=== PATIENT | female | born 1980 | race Caucasian/White ===

== ENCOUNTER 2016-07-12 06:30 | Inpatient (IN) | payer OTHER ==
--- NOTE | 2016-07-05 21:25 | GHP ---
[ f rep st] PREOP HISTORY AND PHYSICAL Amended report DATE OF ADMISSION: 07/12/2016 DATE OF SURGERY: Patient is slated for surgery on 07/12/2015 on the Obstetric service. PREOPERATIVE HISTORY: The patient is a 36-year-old, G3, P1, A1, at 39 weeks 5 days, with an estimated due date of 07/14/2016, who presents for scheduled repeat section. The patient had desired a trial of labor. However, with no spontaneous onset of labor, the patient desires delivery by 40 weeks by section. Risks and benefits have been discussed about the surgery, and the consent form is signed. The patient is offered a tubal ligation for sterilization; however, the patient declines. She is also advised of the potential benefits of salpingectomy and declines. CARE: The patient is followed with [facility] since 9 weeks ' gestation. The patient had a prior history of a section due to a breech presentation, and had considered a trial of labor. However, there has been no onset of spontaneous contractions up to this point, and patient desires scheduling a . testing has been normal. Ultrasound at 20 weeks revealed a low-lying anterior placenta positioned over the prior C- section scar. This was rechecked at 29 weeks' gestation, and the cervix had moved up; however, the placental tip was still over the prior scar. There was no evidence of myometrial invasion. This was rechecked again at 36 weeks, and the placenta was cleared of the lower uterine segment. The baby was measuring in size less than dates, and a recheck of growth at 36 weeks also revealed estimated weight of the 34th percentile at 5 pounds 14 ounces. Fluid was felt to be low at 8 cm, and the patient was advised to increase hydration, and this was rechecked a week later, and had increased to 13.6 cm. The patient has since been pushing fluids well. LABS: Maternal blood type of O positive, with negative antibody screen. RPR nonreactive. Rubella immune. Hepatitis B surface antigen negative. HIV negative. Cystic fibrosis, SMA, fragile X, all negative. Urinalysis and culture negative. Pap smear normal. Gonorrhea and chlamydia negative. Verified testing was normal. MSAFP negative. Hematocrit at the beginning of was 36%, which fell to 33%, and a repeat check was 32%. The patient has been on iron. One-hour Glucola was normal. GBS culture was positive. PAST MEDICAL HISTORY: Abnormal Pap smears at age 18, and cryotherapy performed , and Pap smears normal since then. PAST SURGICAL HISTORY: section, and D and C's x2. PAST OBSTETRIC HISTORY: In April 2012, a viable female at 8 pounds 14 ounces , delivered via section due to breech presentation. This was in [place]. In October 2014, a molar was diagnosed, and a D and C performed. After the D and C was performed and molar tissue obtained, the hCG levels were followed. There was a slow decline that plateaued after week 4. The patient did consult with Dr. Love of Gynecology/Oncology for continued surveillance. The hCGs thereafter decreased to 0. ALLERGIES: Patient has no known drug allergies. CURRENT MEDICATIONS: Only vitamins, with DHA, iron. SOCIAL HISTORY: The patient is , lives with her and their daughter. 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 The patient is a nonsmoker. No alcohol or drug use. PHYSICAL EXAM: GENERAL APPEARANCE: At time of preop, the patient is a well- developed, well-nourished, white female in no physical distress. VITAL SIGNS: The patient is clinically afebrile. Blood pressure 96/58. Urine negative for protein and glucose. Weight 149 pounds. HEENT: Shows no thyromegaly. LUNGS: Clear to auscultation bilaterally. CARDIOVASCULAR: Regular rate and rhythm. ABDOMEN: heart tones are in the 150s. Uterus is gravid, with a fundal height of 33 cm. PELVIC: Exam is deferred. EXTREMITIES: Nontender. ASSESSMENT: Intrauterine at 39 weeks 5 days who will present on for repeat section if she has not had any spontaneous onset of labor. The patient declines tubal ligation. Positive GBS history. History of cryotherapy, with a normal Pap smear. History of a molar in October 2014 , with recommendations to send the placenta to pathology to rule out any molar recurrence in the placental tissue. The patient will also have a followup hCG level at 6 weeks . PLAN: The patient will have a repeat on 07/12/2016. Normal preoperative antibiotics and SCDs. /[id number]/MODL Add acc#, 07/12/16, mike SOLOMON
[2016-07-12] MEDS ORDERED: ceFAZolin 2 GM/DEXTROSE 100 ML IV ONE ×2 (07:00→07:28)
[2016-07-12] MEDS ORDERED: CITRIC ACID/SODIUM CITRATE 30 ML UDCUP PO ONE (07:28)
[2016-07-12] MEDS ORDERED: LR 500 ML IV ONE (07:28)
[2016-07-12] MEDS ORDERED: LR 1,000 ML IV SCH (07:30)
[2016-07-12 07:38] LABS: % IMMATURE GRANULYOCYTES 0.5 % (0.0-1.1); ABSOLUTE IMMATURE GRANULOCYTES 0.04 10^3/uL (0.00-0.10); ADD DIFF? NO; ADD MORPH? NO; ADD SCAN? NO; ATYPICAL LYMPHOCYTE FLAG 30 (0-99); FRAGMENT RBC FLAG 0 (0-99); HEMATOCRIT 32.3 % (38.0-47.0); HEMOGLOBIN 11.2 g/dL (12.6-16.3); LEFT SHIFT FLG 0 (0-99); LIPEMIA HEMOLYSIS FLAG 90 (0-99); MEAN CELL HEMOGLOBIN 30.8 pg (27.9-34.1); MEAN CELL HEMOGLOBIN CONCENTR. 34.7 g/dL (32.4-36.7); MEAN CELL VOLUME 88.7 fL (81.5-99.8); MEAN PLATELET VOLUME 10.7 fL (8.7-11.7); PLATELET CLUMPS FLAG 0 (0-99); PLATELET COUNT 233 10^3/uL (150-400); RED BLOOD CELL COUNT 3.64 10^6/uL (4.18-5.33); RED CELL DISTRIBUTION WIDTH 13.4 % (11.5-15.2)
[2016-07-12] MEDS ORDERED: morphINE PF 5 MG/10 ML INJ ONE (08:21)
[2016-07-12] MEDS ORDERED: OXYTOCIN 100 UNITS/10 ML VIAL ONE (08:23)
[2016-07-12] MEDS ORDERED: OXYTOCIN 10 UNIT/ML VIAL ONE (08:33)
[2016-07-12] MEDS ORDERED: AMMONIA AROMATIC 1 EACH AMP IH ONE (08:33)
[2016-07-12] MEDS ORDERED: MISOPROSTOL 200 MCG TAB ONE (08:33)
[2016-07-12] MEDS ORDERED: PHENYLEPHRINE HCL 100 MCG/ML SYR IVP PRN (10:16)
[2016-07-12] MEDS ORDERED: NALOXONE HCL 0.4 MG/ML INJ IVP PRN ×2 (10:16)
[2016-07-12] MEDS ORDERED: fentaNYL 100 MCG/2 ML INJ IVP PRN (10:16)
[2016-07-12] MEDS ORDERED: OXYCODONE/APAP 5/325 TAB PO PRN (10:16)
[2016-07-12] MEDS ORDERED: ONDANSETRON 4 MG/2 ML VIAL IVP PRN ×2 (10:16)
--- NOTE | 2016-07-12 10:16 | POSTANESTH ---
Post Anesthetic Evaluation Cardiovascular Status: Normal, Stable Respiratory Status: Normal, Stable Level of Consciousness/Mental Status: Can Participate in Eval, Alert and Oriented Pain Control: Adequate, Prn Tx Ordered Nausea/Vomiting Control: Adequate, Prn Tx Ordered Complications Possibly Related to Anesthesia: None Noted
[2016-07-12] MEDS ORDERED: ACETAMINOPHEN 325 MG TAB PO PRN (10:20)
[2016-07-12] MEDS ORDERED: BISACODYL 10 MG SUPP PR PRN (10:25)
[2016-07-12] MEDS ORDERED: MAGNESIUM HYDROXIDE 30 ML UDCUP PO PRN (10:25)
[2016-07-12] MEDS ORDERED: POLYETHYLENE GLYCOL 3350 17 GM PKT PO PRN (10:25)
[2016-07-12] MEDS ORDERED: LACTULOSE 20 GM/30 ML UDCUP PO PRN (10:25)
--- NOTE | 2016-07-12 10:30 | OBPROC ---
- Delivery Pre-op Diagnoses: IUP at 39+ wks, PCS without labor, suprapubic mole Post-op Diagnoses: same, delivered Procedure: Repeat, Low Transverse, Other (Specify) (mole removal) Surgeon: Divina Pastor Paving Block Cutter: Lynda Agosto () Anesthesiologist: Shalonda Stock Skewer Up/AREA FIELD MANAGER: Alycia Talley (AREA FIELD MANAGER) Anesthesia: Spinal (with duramorph) Complications: Nucal Cord (x 1 loose, reduced) Findings: mild adhesions with NIYAH at bladder flap, vtx delivery uncomplicated. vigorous at . clear fluid upon AROM, 1 cm raised mole in suprapubic position - wide base - excised at base with scalpel. 1 suture of 4-0 vicryl with horiz mattress stitch. Subcuticular closure with 4-0 vicryl Specimen(s)/Path: Placenta (sent to path due to hx of molar in 11/07 with persistent high quant HCGs after DnC requiring MTX) IV Fluid (ml): 3,000 EBL: 1000 - [place] Info Infant A Delivery Date: 07/12/16 Delivery Time: 09:03 Sex of Infant: Male (Kelvin) Score (1 Min): 8 Score (5 Min): 9
[2016-07-12] MEDS ORDERED: KETOROLAC 30 MG/1 ML SDV ONE (10:39)
[2016-07-12] MEDS: KETOROLAC 30 MG/1 ML SDV IVP SCH ×3 (10:44→23:10)
[2016-07-12] MEDS ORDERED: OXYTOCIN/RINGERS LACTATE 1,000 ML IV SCH (12:30)
[2016-07-12] MEDS ORDERED: MISOPROSTOL 200 MCG TAB PR ONE ×2 (12:30→13:00)
[2016-07-12] MEDS: IBUPROFEN 600 MG TAB PO SCH ×2 (14:40→21:31)
--- NOTE | 2016-07-12 19:22 | SOAPPROG ---
SOAP Progress Note Assessment/Plan: Assessment: pod# 0 s/p RLTCS pp oozing - resolved with pitocin and cytotec breast feeding Plan: routine post operative and post care 07/12/16 19:19 Subjective: patent is doing well. sitting up in a chair. breast feeding. normal lochia now. tolerating diet. denies headache and changes in vision. no issues. pain controlled. Objective: Vital Signs Temp Pulse Resp BP Pulse Ox 37.6 C 17 L 17 101/74 97 07/12/16 15:51 07/12/16 15:51 07/12/16 15:51 07/12/16 15:51 07/12/16 15:51 Laboratory Results 07/12/16 07:30 07/11/16 07/12/16 07/13/16 05:59 05:59 05:59 Intake Total 1600 Output Total 950 Balance 650 Physical Exam - Physical Exam General Appearance: WD/WN, alert, no apparent distress Respiratory: chest non-tender, lungs clear, normal breath sounds Cardiac/Chest: normal peripheral pulses, regular rate, rhythm Abdomen: normal bowel sounds, non-tender, soft, other (fundus firm and non tender) Skin: normal color, warm/dry Extremities: normal range of motion, non-tender, normal inspection, normal capillary refill Neuro/Psych: no motor/sensory deficits, alert, normal mood/affect, oriented x 3 ICD10 Worksheet Patient Problems: Problems Problem Status Diagnosed Status post repeat low transverse section Acute
[2016-07-12] MEDS: SENNOSIDES/DOCUSATE SODIUM TAB PO SCH (23:10)
[2016-07-12] MEDS: HYDROCODONE/APAP 5/325 TAB PO PRN (23:16)
[2016-07-13] MEDS: KETOROLAC 30 MG/1 ML SDV IVP SCH (04:37)
[2016-07-13] MEDS: IBUPROFEN 600 MG TAB PO SCH ×4 (05:31→17:45)
--- NOTE | 2016-07-13 07:48 | OBPROG ---
OBG Progress Note Assessment/Plan: Assessment: 1) s/p RCS POD #1 - pt is stable 2) Anemia - pt is asymptomatic Plan: Continue routine post-op orders Encourage ambulation and IS To remove dressing this am, pt may shower Adv diet as catarina Will start iron Plan for d/c home in 24-48 hrs 07/13/16 07:44 07/13/16 07:50 Subjective: Pt seen and examined. Doing well, no complaints. Pain well controlled with Toradol. Pt OOB, catarina diet, echeverria in place, passing flatus. Denies any f/c/n/v/ CP or SOB. Moderate lochia. . Denies any dizziness when OOB. Objective: 07/13/16 04:50 Patient ABO/Rh O POSITIVE 07/12/16 07:30 Temp Pulse Resp BP Pulse Ox 37.0 C 89 16 103/68 95 07/13/16 04:30 07/13/16 04:30 07/13/16 04:30 07/13/16 04:30 07/13/16 04:30 Uterine Position/Fundal Height: Umbilicus -1 Uterine Tone: Firm - Physical Exam General Appearance: WD/WN, alert, no apparent distress Respiratory: lungs clear, normal breath sounds Cardiac/Chest: regular rate, rhythm Abdomen: normal bowel sounds, soft, flatus (+), incision (C/D/I), dressing ( intact, dry), other (appropriate tenderness) Genitourinary: lochia (moderate) Extremities: normal inspection Neuro/Psych: alert, normal mood/affect, oriented x 3 ICD10 Worksheet Patient Problems: Problems Problem Status Diagnosed Status post repeat low transverse section Acute
[2016-07-13] MEDS: SENNOSIDES/DOCUSATE SODIUM TAB PO SCH ×2 (09:57→20:36)
[2016-07-13] MEDS: FERROUS SULFATE 325 MG TAB PO SCH ×2 (09:58→20:36)
[2016-07-13] MEDS: HYDROCODONE/APAP 5/325 TAB PO PRN ×2 (10:18→19:39)
[2016-07-14] MEDS: IBUPROFEN 600 MG TAB PO SCH ×3 (00:06→12:55)
[2016-07-14 07:18] VITALS: RESP 16
[2016-07-14 08:16] VITALS: BP 113/74; PULSE 86; TEMP 98.6; O2SAT 95
[2016-07-14] MEDS: FERROUS SULFATE 325 MG TAB PO SCH (08:55)
[2016-07-14] MEDS: SENNOSIDES/DOCUSATE SODIUM TAB PO SCH (09:00)
--- NOTE | 2016-07-14 13:30 | SOAPPROG ---
SOAP Progress Note Assessment/Plan: Assessment: POD 2 s/p RCS anemia Plan: D/C home, iron BID 07/14/16 13:22 Subjective: Pt doing well. Pain controlled well with minimal [place] and ibu regularly. Has had BMs. Is urinating without problems. Able to ambulate without dizziness. Baby has been BF with fair latch. Not too sore with nipples. Bld is light. Objective: Vital Signs Temp Pulse Resp BP Pulse Ox 37.0 C 86 16 113/74 95 07/14/16 08:15 07/14/16 08:15 07/14/16 08:15 07/14/16 08:15 07/14/16 08:15 Laboratory Results 07/13/16 04:50 07/13/16 07/14/16 07/15/16 05:59 05:59 05:59 Intake Total 4000 500 Output Total 4350 3200 Balance -350 -2700 Physical Exam - Physical Exam General Appearance: WD/WN Abdomen: non-tender (approp post op tenderness), soft, other (incision CDI - some ecchymosis at left angle, FF at umb -1) Pelvic Exam: vaginal bleeding (normal lochia) Extremities: non-tender, pedal edema (little edema) Neuro/Psych: normal mood/affect ICD10 Worksheet Patient Problems: Problems Problem Status Diagnosed Status post repeat low transverse section Acute
[2016-07-14] MEDS: HYDROCODONE/APAP 5/325 TAB PO PRN (14:05)
== END 2016-07-14 18:30 | disposition home or self-care (01) | DRG 766 ==
LOC: FLD 06:30 → FOB 13:15
PROVIDERS: ADMIT Obstetrics & Gynecology; ATTEND Obstetrics & Gynecology
PROC: 10D00Z1 Extraction of Products of Conception, Low, Open Approach (ICD-10-PCS; principal; 2016-07-12)
PROC: 0HB7XZZ Excision of Abdomen Skin, External Approach (ICD-10-PCS; principal; 2016-07-12)
DX: O34.211 Maternal care for low transverse scar from previous cesarean delivery (principal); O99.820 Streptococcus B carrier state complicating pregnancy; O26.893 Other specified pregnancy related conditions, third trimester; D22.9 Melanocytic nevi, unspecified; Z37.0 Single live birth; Z3A.39 39 weeks gestation of pregnancy
CPT/HCPCS: J0690; J1885; J2274; J2590